=== PATIENT | female | born 1945 | race Caucasian/White ===

== ENCOUNTER 2020-09-13 13:40 | Outpatient (CLI) | payer MEDICARE, SELFPAY ==
--- NOTE | 2020-09-13 14:02 | USCV_ITS ---
Candie Prakash Age: 75 Gender: F : 1945 Exam Date: 09/13/2020 14:26 Ordering Phys: Beti Eldridge DC Technologist: Alba Hardy Exam Location: [facility] – [place]_ Indication: RLE PAIN HISTORY: Lower extremity pain. PROCEDURES: Venous duplex imaging was performed in only the right lower extremity. The following venous structures were evaluated: common femoral vein, profunda vein, proximal portion of the greater saphenous vein, superficial femoral vein, and the popliteal vein. In addition, the posterior tibial and peroneal trunk were evaluated. Serial compression, augmentation maneuvers, and spectral Doppler flow evaluation were performed. FINDINGS: Normal 2-D Doppler and augmentation and compressibility throughout the lower extremity venous structures. Additional imaging through the proximal calf veins also reveals no thrombus. Limited evaluation of the greater saphenous vein is patent with no thrombus. CONCLUSIONS No DVT right lower extremity. Dr. Hayley Ro DO (Electronically Signed) Final Date: 13 Sep 2020 15:53 S
== END 2020-09-13 13:41 | disposition home or self-care (01) ==
LOC: RAD 13:50
PROVIDERS: Visit Provider Chiropractor Orthopedic
DX: M79.604 Pain in right leg (principal)
CPT/HCPCS: 93971